=== PATIENT | male | born 1990 | race Caucasian/White ===

== ENCOUNTER 2021-09-28 17:47 | Emergency (ER) | payer OTHER ==
[2021-09-28 18:57] VITALS: BP 116/70; PULSE 97; RESP 20; TEMP 99.5
[2021-09-28] MEDS ORDERED: ACETAMINOPHEN TAB 500 MG TAB PO STA (19:59)
[2021-09-28] MEDS ORDERED: KETOROLAC 15 MG/ML 1 ML VIAL IM STA (19:59)
[2021-09-28] MEDS ORDERED: MAG HYDROX/AL HYDROX/SIMETH 30 ML, HYOSCYAMINE ELIXIR 10 ML, LIDOCAINE VISCOUS 2% 10 ML PO STA ×3 (19:59)
[2021-09-28] MEDS ORDERED: ONDANSETRON 4 MG ODT STARTER PACK 2 TAB BTL PO STA (19:59)
--- NOTE | 2021-09-28 20:17 | XR ---
EXAMINATION TYPE: XR chest 1V DATE OF EXAM: 09/28/2021 COMPARISON: NONE HISTORY: Difficulty breathing TECHNIQUE: Single view FINDINGS: Heart and mediastinum are normal. Lungs are clear. Diaphragm is normal. Bony thorax is inta ct. IMPRESSION: Normal chest.
--- NOTE | 2021-09-28 20:59 | ED ---
General Adult HPI - General Chief complaint: Upper Respiratory Infection Stated complaint: GENEVA,Fever,cough Poss COVID3 of 4 Time Seen by Provider: 09/28/21 19:15 Source: patient Mode of arrival: ambulatory Limitations: no limitations - History of Present Illness Initial comments: 31-year-old male patient presents to the emergency department today for althea luation of sore throat, cough, fevers for the last 5 days. States he feels that his throat was swollen and makes it difficult to swallow. States his pain is equal on both sides. Denies any trismus. Does report cough with yellow sputum production. States his had intermittent fevers. Reports intermittent episodes of vomiting. Denies diarrhea. Does have a history of GERD and is a smoker. Denies taking any medications for symptoms today. Does have family member sick with similar symptoms he is concerned he has COVID-19. - Related Data Previous Rx's Medication Instructions Recorded Ibuprofen [Motrin] 800 mg PO Q8HR PRN #30 tab 06/08/14 Phenazopyridine [Pyridium] 200 mg PO TID #6 tablet 08/29/15 Albuterol Sulfate [Proair Hfa] 1 - 2 puff INHALATION Q6HR PRN 09/28/21 #8.5 gm Dexamethasone 6 mg PO DAILY #9 tablet 09/28/21 Ondansetron [Zofran ODT] 4 mg PO Q8HR PRN #10 tab 09/28/21 guaiFENesin-DM 600/30MG [Mucinex 2 each PO Q12HR PRN #20 tab 09/28/21 Dm] Allergies Allergy/AdvReac Type Severity Reaction Status Date / Time No Known Allergies Allergy Verified 09/28/21 18:54 Review of Systems ROS Statement: Those systems with pertinent positive or pertinent negative responses have been documented in the HPI. ROS Other: All systems not noted in ROS Statement are negative. Past Medical History Past Medical History: GERD/Reflux Additional Past Medical History / Comment(s): Carpal Tunnel bilateral, Esophageal Ulcer History of Any Multi-Drug Resistant Organisms: None Reported Past Surgical History: No Surgical Hx Reported Past Psychological History: Anxiety, Bipolar, Depression Smoking Status: Current every day smoker Past Alcohol Use History: None Reported, Occasional Past Drug Use History: Marijuana General Exam Limitations: no limitations General appearance: alert, in no apparent distress, other (This is a well- developed, well-nourished adult male patient in no acute distress.) ENT exam: Present: mucous membranes moist. Absent: normal oropharynx (Pharyngeal erythema, no tonsillar hypertrophy or exudate. Tonsils are symmetric and uvula is midline.) Respiratory exam: Present: normal lung sounds bilaterally. Absent: respiratory distress, wheezes, rales, rhonchi, stridor Cardiovascular Exam: Present: regular rate, normal rhythm, normal heart sounds. Absent: systolic murmur, diastolic murmur, rubs, gallop, clicks GI/Abdominal exam: Present: soft, normal bowel sounds. Absent: distended, tenderness, guarding, rebound, rigid Neurological exam: Present: alert, oriented X3, CN II-XII intact Psychiatric exam: Present: normal affect, normal mood Skin exam: Present: warm, dry, intact, normal color. Absent: rash Course Vital Signs 09/28/21 18:55 Temperature 99.5 F Pulse Rate 97 Respiratory 20 Rate Blood Pressure 116/70 O2 Sat by Pulse 97 Oximetry Medical Decision Making - Medical Decision Making 31-year-old male patient presents to the emergency department today for evaluation of cough, congestion, sore throat, fevers. Physical examination did reveal some mild pharyngeal erythema. Vital signs are unremarkable. Chest x- ray negative. He did test positive for COVID-19. We did discuss monoclonal antibodies and he does meet criteria to receive the infusion, he refuses. We did discuss supportive care, he'll be sent with prescriptions for symptom management. He is instructed to follow-up with his primary care physician for recheck in 1-2 days. Return parameters were discussed in detail. He verbalizes understanding and agrees with this plan. Case discussed with my attending Dr. Elena. - Lab Data Lab Results 09/28/21 Range/Units 19:10 Coronavirus (PCR) Detected A (Not Detectd) - Radiology Data Radiology results: report reviewed, image reviewed 1 view x-ray of the chest is obtained. Report was reviewed in its entirety. Impression by Dr. Brown shows normal chest. Disposition Clinical Impression: COVID-19 Disposition: HOME SELF-CARE Condition: Good Instructions (If sedation given, give patient instructions): Coronavirus Disease 2019 (COVID-19) Additional Instructions: Take medications as directed. Increase fluids. Rest. Follow-up with her primary care physician for recheck in 1-2 days. Return for any new, worsening, or concerning symptoms. Prescriptions: Dexamethasone 6 mg PO DAILY #9 tablet guaiFENesin-DM 600/30MG [Mucinex Dm] 2 each PO Q12HR PRN #20 tab PRN Reason: Cough Albuterol Sulfate [Proair Hfa] 1 - 2 puff INHALATION Q6HR PRN #8.5 gm PRN Reason: Shortness Of Breath Ondansetron [Zofran ODT] 4 mg PO Q8HR PRN #10 tab PRN Reason: Nausea Is patient prescribed a controlled substance at d/c from ED?: No Referrals: None,Stated [Primary Care Provider] - 1-2 days Time of Disposition: 20:59
== END 2021-09-28 21:15 | disposition home or self-care (01) ==
LOC: EC 17:47
DX: U07.1 COVID-19 (principal); K21.9 Gastro-esophageal reflux disease without esophagitis; F41.9 Anxiety disorder, unspecified; F31.9 Bipolar disorder, unspecified; F17.200 Nicotine dependence, unspecified, uncomplicated; F12.90 Cannabis use, unspecified, uncomplicated; Z87.19 Personal history of other diseases of the digestive system
CPT/HCPCS: 99283 ×2; 96372 ×2; 87635; 71045; J1885; S0119

== ENCOUNTER 2023-05-20 09:39 | Inpatient (IN) | payer MEDICAID, OTHER ==
--- NOTE | 2023-05-20 10:56 | ED ---
General Adult HPI - General Chief complaint: Psychiatric Symptoms Stated complaint: mental health Time Seen by Provider: 05/20/23 10:41 Source: patient, family, RN notes reviewed Mode of arrival: ambulatory Limitations: no limitations - History of Present Illness Initial comments: Patient is a pleasant 32-year-old male presenting to the emergency department with concern with anxiety. Patient has been under increased stress. Patient has had increasing anxiety for the past 5 days. Patient is not sleeping. Patient is not eating well. Patient does not believe he is functioning well. Patient does have palpitations. Patient has nonspecific paresthesias as well. Patient denies history of chronic anxiety. Patient does admit to sometimes smoking marijuana. - Related Data Home Medications Medication Instructions Recorded Confirmed No Known Home Medications 05/20/23 05/20/23 Allergies Allergy/AdvReac Type Severity Reaction Status Date / Time No Known Allergies Allergy Verified 05/20/23 11:23 Review of Systems ROS Statement: Those systems with pertinent positive or pertinent negative responses have been documented in the HPI. ROS Other: All systems not noted in ROS Statement are negative. Constitutional: Denies: fever Eyes: Denies: eye pain ENT: Denies: ear pain Respiratory: Denies: cough Cardiovascular: Reports: as per HPI, palpitations Endocrine: Denies: fatigue Gastrointestinal: Denies: abdominal pain Genitourinary: Denies: dysuria Musculoskeletal: Denies: back pain Past Medical History Past Medical History: GERD/Reflux Additional Past Medical History / Comment(s): Carpal Tunnel bilateral, Esophageal Ulcer History of Any Multi-Drug Resistant Organisms: None Reported Past Surgical History: No Surgical Hx Reported Past Psychological History: Anxiety, Bipolar, Depression Smoking Status: Current every day smoker Past Alcohol Use History: None Reported, Occasional Past Drug Use History: Marijuana General Exam Limitations: no limitations General appearance: alert, in no apparent distress Head exam: Present: normocephalic Eye exam: Present: normal appearance Respiratory exam: Present: normal lung sounds bilaterally Cardiovascular Exam: Present: regular rate, normal rhythm GI/Abdominal exam: Present: soft. Absent: tenderness Extremities exam: Present: normal inspection Neurological exam: Present: alert, CN II-XII intact. Absent: motor sensory deficit Psychiatric exam: Present: anxious Skin exam: Present: normal color Course Vital Signs 05/20/23 10:03 Temperature 98 F Pulse Rate 82 Respiratory 16 Rate Blood Pressure 125/82 O2 Sat by Pulse 97 Oximetry EKG Findings - EKG Results: EKG: interpreted by ERMD, sinus rhythm (With sinus arrhythmia), normal axis, normal QRS, normal ST/T Medical Decision Making - Medical Decision Making Was pt. sent in by a medical professional or institution (DAMIEN Emery, CREDIT RELATIONSHIP MANAGER, urgent care, hospital, or snf...) When possible be specific @ -No Did you speak to anyone other than the patient for history (EMS, parent, family, police, friend...)? What history was obtained from this source @ -Family is present and helps provide history including patient's increased anxiety Did you review nursing and triage notes (agree or disagree)? Why? @ -I reviewed and agree with nursing and triage notes Were old charts reviewed (outside hosp., previous admission, EMS record, old EKG, old radiological studies, urgent care reports/EKG's, snf records)? Report findings @ -No old charts were reviewed Differential Diagnosis (chest pain, altered mental status, abdominal pain women, abdominal pain men, vaginal bleeding, weakness, fever, dyspnea, syncope, headache, dizziness, GI bleed, back pain, seizure, CVA, palpatations, mental health)? @ -not applicable EKG interpreted by me (3pts min.). @ -As above X-rays interpreted by me (1pt min.). @ -None done CT interpreted by me (1pt min.). @ -None done U/S interpreted by me (1pt. min.). @ -None done What testing was considered but not performed or refused? (CT, X-rays, U/S, labs)? Why? @ -None What meds were considered but not given or refused? Why? @ -None Did you discuss the management of the patient with other professionals (professionals i.e. DAMIEN Emery, CREDIT RELATIONSHIP MANAGER, lab, RT, psych nurse, social work assistant, regional facilities manager, teacher, chief school finance officer, caseworker protective services)? Give summary @ -Case was discussed with psychiatric nurse who plans with admission of patient. Patient did sign himself in. Was smoking cessation discussed for >3mins.? @ -No Was critical care preformed (if so, how long)? @ -No Were there social determinants of health that impacted care today? How? (Homelessness, low income, unemployed, alcoholism, drug addiction, transportation, low edu. Level, literacy, decrease access to med. care, long term, rehab)? @ -No Was there de-escalation of care discussed even if they declined (Discuss DNR or withdrawal of care, Hospice)? DNR status @ -No What co-morbidities impacted this encounter? (DM, HTN, Smoking, COPD, CAD, Cancer, CVA, ARF, Chemo, Hep., AIDS, mental health diagnosis, sleep apnea, morbid obesity)? @ -None Was patient admitted / discharged? Hospital course, mention meds given and route, prescriptions, significant lab abnormalities, going to OR and other pertinent info. @ -Patient will be admitted for psychiatric care Undiagnosed new problem with uncertain prognosis? @ -No Drug Therapy requiring intensive monitoring for toxicity (Heparin, Nitro, Insulin, Cardizem)? @ -No Were any procedures done? @ -No Diagnosis/symptom? @ -Anxiety Acute, or Chronic, or Acute on Chronic? @ -Acute Uncomplicated (without systemic symptoms) or Complicated (systemic symptoms)? @ -default Side effects of treatment? @ -No Exacerbation, Progression, or Severe Exacerbation? @ -No Poses a threat to life or bodily function? How? (Chest pain, [place], [place], pneumonia, PE, COPD, DKA, ARF, appy, cholecystitis, CVA, Diverticulitis, Homicidal, Suicidal, threat to staff... and all critical care pts) @ -No Disposition Clinical Impression: Acute anxiety Disposition: TRANSFER TO PSYCH HOSP/UNIT Is patient prescribed a controlled substance at d/c from ED?: No Referrals: None,Stated [Primary Care Provider] - 1-2 days Time of Disposition: 12:00
[2023-05-20] MEDS ORDERED: LORazepam 1 MG TAB PO STA (11:56)
[2023-05-20 13:18] LABS: Amphetamine Screen,Urine Not Detected (NotDetected); Benzodiazepines Screen,Urine Not Detected (NotDetected); Cocaine Screen,Urine Not Detected (NotDetected); Opiate Screen,Urine Not Detected (NotDetected); Phencyclidine Screen,Urine Not Detected (NotDetected); Tricyclic Antidepressant,Urine Not Detected (NotDetected); Urn Cannabinoid Scrn Detected (NotDetected)
[2023-05-20 13:19] LABS: Barbiturate Screen,Urine Not Detected (NotDetected); Methadone Screen, Urine Not Detected (NotDetected); Oxycodone Screen, Urine Not Detected (NotDetected)
[2023-05-20] MEDS ORDERED: MAG HYDROX/AL HYDROX/SIMETH 30 ML CUP PO PRN (13:23)
[2023-05-20] MEDS ORDERED: MAGNESIUM HYDROXIDE 2,400 MG/30 ML CUP PO PRN (13:23)
[2023-05-20] MEDS ORDERED: ACETAMINOPHEN TAB 325 MG TAB PO PRN (13:23)
[2023-05-20] MEDS ORDERED: traZODone HCL 100 MG TAB PO PRN (13:26)
[2023-05-20] MEDS ORDERED: hydrOXYzine HCL 50 MG/ML 1 ML VIAL IM PRN (13:26)
[2023-05-20] MEDS ORDERED: haloperidoL 5 MG TAB PO PRN (13:26)
[2023-05-20] MEDS ORDERED: HALOPERIDOL LACTATE 5 MG/ML 1 ML VIAL IM PRN (13:26)
[2023-05-20 15:01] LABS: Appearance,Urine Clear (Clear); Bilirubin,Urine Negative (Negative); Blood,Urine Negative (Negative); Color,Urine Colorless; Glucose,Urine (UA) Negative (Negative); Ketones,Urine Negative (Negative); Leukocyte Esterase,Urine Negative (Negative); Nitrite,Urine Negative (Negative); Protein,Urine Negative (Negative); Specific Gravity,Urine 1.002 (1.001-1.035); Urobilinogen,Urine <2.0 mg/dL (<2.0)
[2023-05-20] MEDS: hydrOXYzine pamoate 25 MG CAP PO PRN (16:18)
[2023-05-20] MEDS: SENNOSIDES-DOCUSATE SODIUM 1 EACH TAB PO SCH (16:18)
--- NOTE | 2023-05-20 17:01 | P.CONS ---
History of Present Illness - Reason for Consult Consult date: 05/20/23 - History of Present Illness Patient is a 32-year-old male with no significant past medical history presenting to the ED for mental health concerns. He's been admitted to the mental health unit for further management of his symptoms. [facility] has been consulted for medical management of this patient. Patient reports a history of anxiety and panic attacks a cause pressure-like sensation in his chest. He reports good exercise tolerance. He denies any exertional chest pain. Patient reports being evaluated with EKG and blood work at an outside hospital which was negative for ischemic cardiac changes. He has no other complaints today. General: non toxic, no distress, appears at stated age Derm: warm, dry Head: atraumatic, normocephalic, symmetric Eyes: EOMI, no lid lag, anicteric sclera Cardiovascular: S1S2 reg, no murmur Lungs: CTA bilateral, no rhonchi, no rales , no accessory muscle use Ext: no gross muscle atrophy, no edema, no contractures Neuro: CN II-XI grossly intact, no focal neuro deficits Psych: Alert, oriented, appropriate affect Marijuana abuse Chest discomfort likely related to anxiety and panic attack Based on my assessment of this patient, this patient meets a moderate complexity level of care. Patient has a chronic diagnosis of anxiety and panic attack. He reports chest pressure when he experiences these panic attacks. He reports being evaluated with EKG and blood work in an outside hospital that was negative for ischemic changes. He denies any exertional chest pain or issues with exercise tolerance. His symtoms is unlikely to be cardiac in nature. Patient is encouraged to quit marijuana use and it can be contributing to his anxiety and panic attacks. I have reviewed the following investment consultant notes: I have reviewed the results of the following tests: Urinalysis negative. UDS positive for marijuana. COVID-19 negative. I have ordered the following tests: Agree with CBC, CMP, hemoglobin A1c and TSH ordered by psychiatry. I have discussed the care of this patient with the following independent historian: I have independently interpreted the following test below: I have discussed the management of this patient with the following physician: Past Medical History Past Medical History: GERD/Reflux Additional Past Medical History / Comment(s): Carpal Tunnel bilateral, Esophageal Ulcer History of Any Multi-Drug Resistant Organisms: None Reported Past Surgical History: No Surgical Hx Reported Past Psychological History: Anxiety, Bipolar, Depression Smoking Status: Current every day smoker Past Alcohol Use History: None Reported, Occasional Past Drug Use History: Marijuana Medications and Allergies Home Medications Medication Instructions Recorded Confirmed Type No Known Home Medications 05/20/23 05/20/23 History Allergies Allergy/AdvReac Type Severity Reaction Status Date / Time No Known Allergies Allergy Verified 05/20/23 11:23 Physical Exam Vitals: Vital Signs Temp Pulse Resp BP Pulse Ox 05/20/23 10:03 98 F 82 16 125/82 97 Intake and Output 05/20/23 05/20/23 05/20/23 06:59 14:59 22:59 Other: Weight 74.843 kg Results Labs: Abnormal Lab Results - Last 24 Hours (Table) 05/20/23 Range/Units 11:32 U Marijuana (THC) Screen Detected H (NotDetected)
[2023-05-21] MEDS: hydrOXYzine pamoate 25 MG CAP PO PRN (08:02)
[2023-05-21] MEDS: SENNOSIDES-DOCUSATE SODIUM 1 EACH TAB PO SCH (08:02)
[2023-05-21 11:44] LABS: Basophils % (A) 0 %; Eosinophils # (A) 0.1 k/uL (0-0.7); Eosinophils % (A) 1 %; HCT 43.2 % (39.0-53.0); HGB 14.8 gm/dL (13.0-17.5); Lymphocytes # (A) 1.1 k/uL (1.0-4.8); Lymphocytes % (A) 25 %; MCH 33.1 pg (25.0-35.0); MCHC 34.4 g/dL (31.0-37.0); MCV 96.1 fL (80.0-100.0); Mean Platelet Volume 8.1; Monocytes # (A) 0.2 k/uL (0-1.0); Monocytes % (A) 5 %; Neutrophils # (A) 2.9 k/uL (1.3-7.7); Neutrophils % (A) 66 %; Platelet Count 165 k/uL (150-450); RBC 4.49 m/uL (4.30-5.90); RDW 12.1 % (11.5-15.5); WBC 4.4 k/uL (3.8-10.6)
[2023-05-21] MEDS ORDERED: clonazePAM 1 MG TAB PO STA (11:46)
[2023-05-21 11:47] LABS: ALT 23 U/L (4-49); AST 28 U/L (17-59); African American GFR (CKD) >90 (>60 ml/min/1.73 sqM); Albumin 3.7 g/dL (3.5-5.0); Alkaline Phosphatase 50 U/L (38-126); Anion Gap 6 mmol/L; Blood Urea Nitrogen 13 mg/dL (9-20); Calcium 8.8 mg/dL (8.4-10.2); Carbon Dioxide 27 mmol/L (22-30); Chloride 104 mmol/L (98-107); Glucose 88 mg/dL (74-99); Non-African American GFR(CKD) >90 (>60 ml/min/1.73 sqM); Potassium 4.1 mmol/L (3.5-5.1); Sodium 137 mmol/L (137-145); Total Protein 6.1 g/dL (6.3-8.2)
[2023-05-21] MEDS ORDERED: FLUoxetine HCL 10 MG CAP PO STA (11:48)
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
[2023-05-21] MEDS: clonazePAM 1 MG TAB PO SCH ×2 (16:28→21:45)
[2023-05-21] MEDS: traZODone HCL 100 MG TAB PO SCH (21:45)
[2023-05-22 07:10] VITALS: TEMP 98.3
[2023-05-22] MEDS: SENNOSIDES-DOCUSATE SODIUM 1 EACH TAB PO SCH (08:05)
[2023-05-22] MEDS: FLUoxetine HCL 20 MG CAP PO SCH (08:05)
[2023-05-22] MEDS: clonazePAM 1 MG TAB PO SCH ×2 (08:05→20:43)
--- NOTE | 2023-05-22 11:58 | P.PN ---
Progress Note - Text Progress Note Date: 05/22/23 Interval History: Patient was seen resting in bed and was directable and agreeable to speak with instructional writer in his room. Reports that he feels tired as he feels like he is catching up with all of his lost sleep. He does however report that his anxiety has significantly improved. He reports that he feels like he is back to normal. He is currently denying any suicidal or homicidal ideation, intention, and/or plan. He is not reporting any auditory or visual hallucinations. He denies any paranoia or other delusions. He reports no issues regarding his sleep or his appetite. He denies any medical issues or concerns. He is agreeable with titration of his Prozac and tapering of his Klonopin. Mental Status Exam: General Appearance: Patient appears to be stated age is alert, directable, and cooperative. Behavior: Patient is calmly lying down in bed without any agitated behavior. Speech: Patient's speech is fluent and nonpressured. Mood/Affect: Mood is improving mildly, affect is congruent and constricted. Suicidality/Homicidality: Patient reports no suicidal or homicidal ideation, intention, and/or plan. Perceptions: Patient denies any visual hallucinations and denies any auditory hallucinations Though content/process: There is no evidence of any delusional thought content and thought process is linear and goal-directed. Memory and concentration: AOX3, grossly intact for the purposes of this session Judgment and insight: Improving mildly Vital Signs Temp 98.3 F 05/22/23 07:09 Pulse 72 05/22/23 08:07 Resp 16 05/22/23 07:09 BP 91/57 05/22/23 08:07 Pulse Ox 99 05/22/23 07:09 FiO2 Laboratory Results - Last 24 Hours 05/21/23 05/21/23 10:42 10:[address] Glu mg/dL 94 Hemoglobin A1c 4.9 TSH 1.310 Assessment Panic disorder, without or phobia Cannabis use disorder Alcohol use disorder, in remission Plan: -Patient continues to meet criteria for inpatient psychiatric admission for symptom stabilization and safety. Patient has signed adult voluntary form and medication consent and was placed in patient's chart. -Medications: Taper Klonopin over the weekend Increase Prozac to 40 mg by mouth daily for panic disorder. Titrate to 60 mg over the weekend. -When necessary Vistaril and Haldol for agitation/aggression. -SW on board for discharge planning. Encouraged the patient to participate in milieu.
[2023-05-22] MEDS: clonazePAM 0.5 MG TAB PO PRN (14:07)
[2023-05-22 15:20] VITALS: BMI 22.2
[2023-05-22] MEDS: hydrOXYzine pamoate 25 MG CAP PO PRN (17:56)
[2023-05-22] MEDS: traZODone HCL 100 MG TAB PO SCH (20:43)
[2023-05-23] MEDS: FLUoxetine HCL 20 MG CAP PO SCH (09:15)
[2023-05-23] MEDS: clonazePAM 1 MG TAB PO SCH ×2 (09:16→21:09)
[2023-05-23] MEDS: SENNOSIDES-DOCUSATE SODIUM 1 EACH TAB PO SCH (09:16)
--- NOTE | 2023-05-23 11:03 | P.PN ---
Progress Note - Text Progress Note Date: 05/23/23 Interval history: Patient was seen laying in bed today and was directable and agreeable to speak with adjusto writer operator. Patient claims that he is feeling tired this morning and states that he was trying to get over a "giant panic attack all last week". He states that he is mildly improving in terms of his mood and anxiety. He is denying any depression at this time. He claims that he had no complaints over the night and states that he slept fairly, has a fair appetite, has been going to minimal gr oups. In the keeping to himself or in his room on the unit. At this time patient denies any suicidal or homicidal ideations intent or plan. Denies any Auditory or visual hallucinations. Patient denies any side effects from the medications and has been compliant with meds. Mental status exam: General Appearance: Patient appears to be thin, stated age is directable, and cooperative. Somewhat lethargic. Behavior: No agitated behavior. Patient is calm and directable Speech: Patient's speech is fluent and nonpressured. Mood/Affect: Mood is improving mildly, affect is congruent and constricted. Suicidality/Homicidality: Patient denies having any suicidal or homicidal ideation intent or plan. Perceptions: Patient denies any auditory or visual hallucinations. Though content/process: There is no evidence of any delusional thought content and thought process is linear and goal-directed. [place] Memory and concentration: AOX3, grossly intact for the purposes of this session Judgment and insight: improving mildly Assessment/Plan: Continue with current diagnosis. Patient continues to meet criteria for inpatient psychiatric admission for symptom stabilization and safety.Patient will be maintained on current psychotropic medication regimen. plan will be to decrease klonopin over the weekend. will decrease down to 0.5 mg bid starting tomorrow. Monitor for medication compliance and for any psychotropic medication side effects. Will continue to monitor ongoing response to treatment. Encouraged participation in milieu.
[2023-05-23] MEDS: clonazePAM 0.5 MG TAB PO PRN (13:49)
[2023-05-23] MEDS: hydrOXYzine pamoate 25 MG CAP PO PRN (16:01)
[2023-05-23] MEDS: traZODone HCL 100 MG TAB PO SCH (21:09)
[2023-05-24] MEDS: FLUoxetine HCL 20 MG CAP PO SCH (07:57)
[2023-05-24] MEDS: SENNOSIDES-DOCUSATE SODIUM 1 EACH TAB PO SCH (07:57)
[2023-05-24] MEDS: clonazePAM 1 MG TAB PO SCH (07:57)
[2023-05-24] MEDS ORDERED: clonazePAM 0.5 MG TAB PO PRN (10:00)
[2023-05-24] MEDS: clonazePAM 0.5 MG TAB PO PRN ×2 (11:08→16:33)
--- NOTE | 2023-05-24 11:42 | P.PN ---
Progress Note - Text Progress Note Date: 05/24/23 Interval history: Patient was seen wandering in the hallways near the nurse's desk and medication window and was directable and agreeable to speak with va underwriter. Patient claims that he is improved since yesterday. States that his anxiety is getting better. He claims that he does not remember speaking to va underwriter yesterday. Claims that he has been trying to go to some groups and was fairly to superficial. States that he is up eating meals, sleeping better last night. Has any depression tod ay. Needs to speak about his overall panic attacks that he used to have and how they are under better control. has a fair appetite. At this time patient denies any suicidal or homicidal ideations intent or plan. Denies any Auditory or visual hallucinations. Patient denies any side effects from the medications and has been compliant with meds. Mental status exam: General Appearance: Patient appears to be thin, stated age is directable, and cooperative. More awake today. Behavior: No agitated behavior. Patient is calm and directable, more cooperative Speech: Patient's speech is fluent and nonpressured. Mood/Affect: Mood is improving mildly, affect is congruent and constricted. Suicidality/Homicidality: Patient denies having any suicidal or homicidal ideation intent or plan. Perceptions: Patient denies any auditory or visual hallucinations. Though content/process: There is no evidence of any delusional thought content and thought process is linear and goal-directed. [place] Memory and concentration: AOX3, grossly intact for the purposes of this session Judgment and insight: improving mildly Assessment/Plan: Continue with current diagnosis. Patient continues to meet nurys m[facility]il for inpatient psychiatric admission for symptom stabilization and safety.Patient will be maintained on current psychotropic medication regimen. Monitor for medication compliance and for any psychotropic medication side effects. Will continue to monitor ongoing response to treatment. Encouraged participation in milieu.
[2023-05-24] MEDS: hydrOXYzine pamoate 25 MG CAP PO PRN (13:37)
[2023-05-24] MEDS: traZODone HCL 100 MG TAB PO SCH (21:06)
[2023-05-24] MEDS: clonazePAM 0.5 MG TAB PO SCH (21:06)
[2023-05-25] MEDS: clonazePAM 0.5 MG TAB PO SCH (08:50)
[2023-05-25] MEDS: SENNOSIDES-DOCUSATE SODIUM 1 EACH TAB PO SCH (08:50)
[2023-05-25] MEDS: FLUoxetine HCL 20 MG CAP PO SCH (08:50)
[2023-05-25 08:52] VITALS: BP 130/69; PULSE 78; RESP 20
--- NOTE | 2023-05-25 11:35 | P.DS ---
Providers Date of admission: 05/20/23 13:21 Expected date of discharge: 05/25/23 Attending physician: Jeramy Lockett MD Consults: 05/20/23 13:23 Consult Physician Routine Consulting Provider: Betito Physician Consult Reason/Comments: H&P Do you want consulting provider notified?: Yes Primary care physician: Stated None - Discharge Diagnosis(es) (1) Panic disorder without agoraphobia with severe panic attacks Current Visit: Yes Status: Acute Priority: High (2) Cannabis use disorder Current Visit: Yes Status: Chronic Priority: Medium (3) Alcohol use disorder in remission Current Visit: Yes Status: Resolved Priority: Low Hospital Course: Admission HPI: Patient is an engaged, unemployed, 32-year-old male with significant history of depression and anxiety who presents to the hospital on 05/20/2023 for severe anxiety HPI: Patient presented to the hospital on 05/20/2023 for severe anxiety. He did initially presented with chest tightness and chest pressure and was evaluated medically and acute cardiac pathology was ruled out. Present in the emergency department with the patient was his mother who provided him with significant social support. The patient was presenting as overtly anxious and borderline psychotic and delusional with concerns for physical symptoms including numbness," abdominal movements," and chest pain. The patient was agreeable to signing himself voluntarily on to the psychiatric unit. Upon evaluation on the psychiatric unit, the patient reports that he received some relief from his panic when he was administered medication yesterday which included Ativan and trazodone. The patient reports that he has been feeling increasingly anxious for the past one week. He does report significant symptoms of panic disorder including palpitations, sweating, trembling, shortness of breath, chest paindiscomfort, nausea, paresthesias, derealization, fear of losing control, and fear of dying. He is consistently worried about these and reports that he has been unable to think about anything else. The patient states that he has only been able to sleep for 2 hours per night for the last few days. He expresses that he is very frustrated with this feeling. He is however denying any suicidal or homicidal ideation, intention, and/or plan. He reports no prior attempts at suicide. The patient states that he is dealing with significant stress in relation to his fiance, children, and finances however he reports that these are stressors that "anybody and everybody has." He is not endorsing any auditory or visualizations. He is denying any paranoia. He does report numerous somatic symptoms in relation to his panic. The patient does report significant substance abuse. He reports that he has been using heavy amounts of marijuana. He reports that he has been using a gram of marijuana per day on top of wax. He denies any alcohol use. He reports no illicit drug use. He denies any tobacco use. He does report a history of alcohol use with approximately a pint of liquor per day however states that he has been sober for one year. Patient states that he has been previously diagnosed with depression/anxiety. He recalls being previously prescribed Prozac and other medications but cannot r ecall their names. He reports that his next dose of Prozac 30 mg daily. Patient denies any previous psychiatric hospitalizations. Patient denies any psychiatric outpatient follow-up. Patient denies any history of suicide attempts in the past. Hospital course: Upon admission to the unit patient was initially presenting as overtly anxious and in a panic. Patient was however directable and agreeable to commence treatment. Patient got along well with other patients on the unit and followed unit protocol. Patient was compliant with the medications and denied any side effects throughout hospital course. Patient was started on Klonopin and Prozac for management of panic disorder. Patient spoke of his stressors and engaged in therapy both group and individual. Patient was also seen by medical team for history and physical exam. His Klonopin was gradually tapered during the hospitalization as his Prozac was titrated. Throughout the course of the hospitalization patient gradually improved with regards to his panic and anxiety symptoms. He also had significant improvement in his mood, sleep, and appetite. On the day of discharge, the patient is not reporting any suicidal or homicidal ideation, intention, and/or plan. He is not reporting any auditory or visual hallucinations. He is denying any paranoia or other delusions. He is not reporting any access to firearms other weapons. He reports a strong side to live for himself and for his family. He does have significant history of substance abuse however was counseled at great length on abstaining from all substances including tobacco, marijuana, alcohol, and all illicit drugs. He was encouraged to be adherent with his medications and outpatient appointments. Prior to discharge, family meeting will be arranged by bilingual social worker to answer questions and ensure safety. He reported no medical issues or concerns on the day of discharge and denied any chest pain, Guy breath, palpitations, nausea, vomiting, akathisia, or tardive dyskinesia. Mental status exam: General Appearance: Patient appears to be stated age is alert, pleasant, and cooperative. Patient is in no acute distress and has fair hygiene and grooming Behavior: Patient is calmly seated without any agitated behavior. Speech: Patient's speech is fluent and nonpressured. Mood/Affect: Patient reports their mood is "much better", affect is congruent and euthymic to bright. Suicidality/Homicidality: Patient denies having any suicidal or homicidal ideation intent or plan. Perceptions: Patient denies any auditory or visual hallucinations. Though content/process: There is no evidence of any delusional thought content and thought process is linear and goal-directed. He is future and goal oriented. Memory and concentration: AOX3, grossly intact for the purposes of this session. Can spell "WORLD" backwards correctly. Judgment and insight: Improved Impression: Panic disorder, without agoraphobia Cannabis use disorder Alcohol use disorder, in remission Plan: -Continue with discharge today as patient has improved and stabilized psychiatrically and is not currently an imminent threat to himself and/or others. Patient has strong protective factors including a supportive family, duty to his children, and future orientation. -Continue medications: Prozac 60 mg daily for depression/anxiety/panic disorder Klonopin 0.5 mg by mouth twice a day when necessary for panic attacks Trazodone 100 mg daily at bedtime when necessary for insomnia -Patient was counseled on the need for medication compliance and appropriate follow-up at mental health and also primary care for medical issues. Patient verbalized understanding and agreed. -Social work to arrange for and conduct family meeting to ensure safety upon discharge and answer any questions/concerns. Social work also to arrange for patients follow up appointments with [facility] for [facility] care along with follow up with primary care provider. -Patient counseled on abstaining from recreational drugs and marijuana and alcohol. Was informed/educated on the adverse effects on their physical and mental health. Patient verbally agreed and understood. -Patient was instructed to return to the hospital or seek immediate medical care if their psychiatric or medical symptoms do worsen or reoccur. -Psychoeducation and supportive therapy provided to patient. Risks and benefits of pharmacological treatment versus the risks and benefits of nontreatment weighed and discussed. Informed consent discussion held. Common side effects of psychotropics discussed such as, but not limited to headache, GI disturbance, sexual dysfunction, movement disorders, sedation, and orthostatic hypotension. Life threatening and blackbox warnings of prescribed medications also discussed. Potential risks of operating a vehicle or heavy machinery discussed with patient at length. Advised on importance of compliance and a reliable and responsible manner. Patient advised to review FDA consumer labeling of all medications prior to taking. Patient verbalized understanding of potential risks, and agrees with current treatment plan. Patient advised to medically co ntact physician/emergency personnel if any acute changes in condition occur. Vital Signs Temp 98.3 F 05/22/23 07:09 Pulse 78 05/25/23 08:52 Resp 20 05/25/23 08:52 BP 130/69 05/25/23 08:52 Pulse Ox 99 05/22/23 07:09 FiO2 Intake & Output 05/24/23 05/25/23 05/25/23 18:59 06:59 18:59 Weight 76.3 kg Laboratory Results WBC 4.4 k/uL (3.8-10.6) 05/21/23 10:42 RBC 4.49 m/uL (4.30-5.90) 05/21/23 10:42 Hgb 14.8 gm/dL (13.0-17.5) 05/21/23 10:42 Hct 43.2 % (39.0-53.0) 05/21/23 10:42 MCV 96.1 fL (80.0-100.0) 05/21/23 10:42 MCH 33.1 pg (25.0-35.0) 05/21/23 10:42 MCHC 34.4 g/dL (31.0-37.0) 05/21/23 10:42 RDW 12.1 % (11.5-15.5) 05/21/23 10:42 Plt Count 165 k/uL (150-450) 05/21/23 10:42 MPV 8.1 05/21/23 10:42 Neutrophils % 66 % 05/21/23 10:42 Lymphocytes % 25 % 05/21/23 10:42 Monocytes % 5 % 05/21/23 10:42 Eosinophils % 1 % 05/21/23 10:42 Basophils % 0 % 05/21/23 10:42 Neutrophils # 2.9 k/uL (1.3-7.7) 05/21/23 10:42 Lymphocytes # 1.1 k/uL (1.0-4.8) 05/21/23 10:42 Monocytes # 0.2 k/uL (0-1.0) 05/21/23 10:42 Eosinophils # 0.1 k/uL (0-0.7) 05/21/23 10:42 Basophils # 0.0 k/uL (0-0.2) 05/21/23 10:42 Sodium 137 mmol/L (137-145) 05/21/23 10:42 Potassium 4.1 mmol/L (3.5-5.1) 05/21/23 10:42 Chloride 104 mmol/L (98-107) 05/21/23 10:42 Carbon Dioxide 27 mmol/L (22-30) 05/21/23 10:42 Anion Gap 6 mmol/L 05/21/23 10:42 BUN 13 mg/dL (9-20) 05/21/23 10:42 Creatinine 0.84 mg/dL (0.66-1.25) 05/21/23 10:42 Est GFR (CKD-EPI)AfAm >90 (>60 ml/min/1.73 sqM) 05/21/23 10:42 Est GFR (CKD-EPI)NonAf >90 (>60 ml/min/1.73 sqM) 05/21/23 10:42 Glucose 88 mg/dL (74-99) 05/21/23 10:[address] Glu mg/dL 94 mg/dL 05/21/23 10:42 Hemoglobin A1c 4.9 % (<=6.0) 05/21/23 10:42 Calcium 8.8 mg/dL (8.4-10.2) 05/21/23 10:42 Total Bilirubin 1.0 mg/dL (0.2-1.3) 05/21/23 10:42 AST 28 U/L (17-59) 05/21/23 10:42 ALT 23 U/L (4-49) 05/21/23 10:42 Alkaline Phosphatase 50 U/L (38-126) 05/21/23 10:42 Total Protein 6.1 g/dL (6.3-8.2) L 05/21/23 10:42 Albumin 3.7 g/dL (3.5-5.0) 05/21/23 10:42 TSH 1.310 mIU/L (0.465-4.680) 05/21/23 10:42 Urine Color Colorless 05/20/23 11:32 Urine Appearance Clear (Clear) 05/20/23 11:32 Urine pH 7.0 (5.0-8.0) 05/20/23 11:32 Ur Specific [place] 1.002 (1.001-1.035) 05/20/23 11:32 Urine Protein Negative (Negative) 05/20/23 11:32 Urine Glucose (UA) Negative (Negative) 05/20/23 11:32 Urine Ketones Negative (Negative) 05/20/23 11:32 Urine Blood Negative (Negative) 05/20/23 11:32 Urine Nitrite Negative (Negative) 05/20/23 11:32 Urine Bilirubin Negative (Negative) 05/20/23 11:32 Urine Urobilinogen <2.0 mg/dL (<2.0) 05/20/23 11:32 Ur Leukocyte Esterase Negative (Negative) 05/20/23 11:32 Urine Opiates Screen Not Detected (NotDetected) 05/20/23 11:32 Ur Oxycodone Screen Not Detected (NotDetected) 05/20/23 11:32 Urine Methadone Screen Not Detected (NotDetected) 05/20/23 11:32 Ur Propoxyphene Screen Not Detected (NotDetected) 05/20/23 11:32 Ur Barbiturates Screen Not Detected (NotDetected) 05/20/23 11:32 U Tricyclic Antidepress Not Detected (NotDetected) 05/20/23 11:32 Ur Phencyclidine Scrn Not Detected (NotDetected) 05/20/23 11:32 Ur Amphetamines Screen Not Detected (NotDetected) 05/20/23 11:32 U Methamphetamines Scrn Not Detected (NotDetected) 05/20/23 11:32 U Benzodiazepines Scrn Not Detected (NotDetected) 05/20/23 11:32 Urine Cocaine Screen Not Detected (NotDetected) 05/20/23 11:32 U Marijuana (THC) Screen Detected (NotDetected) H 05/20/23 11:32 Coronavirus (PCR) Not Detected (Not Detectd) 05/20/23 12:51 Allergies Allergy/AdvReac Type Severity Reaction Status Date / Time No Known Allergies Allergy Verified 05/20/23 11:23 Patient Condition at Discharge: Stable Plan - Discharge Summary New Discharge Prescriptions: New clonazePAM [KlonoPIN] 0.5 mg PO BID PRN 15 Days #30 tab PRN Reason: Panic Attack FLUoxetine HCL [PROzac] 60 mg PO DAILY 30 Days #90 cap traZODone HCL [Desyrel] 100 mg PO HS PRN 30 Days #30 tab PRN Reason: Insomnia Discharge Medication List FLUoxetine HCL [PROzac] 60 mg PO DAILY 30 Days #90 cap 05/25/23 [Rx] clonazePAM [KlonoPIN] 0.5 mg PO BID PRN 15 Days #30 tab 05/25/23 [Rx] traZODone HCL [Desyrel] 100 mg PO HS PRN 30 Days #30 tab 05/25/23 [Rx] Follow up Appointment(s)/Referral(s): [facility] [[facility]STA[facility]] - 1 Week Patient Instructions/Handouts: Anxiety (ED), Panic Attack (ED) Activity/Diet/Wound Care/Special Instructions: Avoid the use of street drugs and alcohol. Take all medications as prescribed. When you are in need of refills on your medications, please contact your medical provider and/or outpatient psychiatrist to have this done. Please go to scheduled outpatient appointments for aftercare treatment. If symptoms return or become worse, call the crisis line at and/or go to the nearest emergency room for evaluation. Discharge Disposition: HOME SELF-CARE
[2023-05-25] MEDS: hydrOXYzine pamoate 25 MG CAP PO PRN (11:54)
== END 2023-05-25 12:55 | disposition home or self-care (01) | DRG 756 ==
LOC: EC 09:39 → 3MHU 13:21
PROVIDERS: ADMIT Psychiatry & Neurology Psychiatry; ATTEND Psychiatry & Neurology Psychiatry
DX: F41.0 Panic disorder [episodic paroxysmal anxiety] (principal); F12.10 Cannabis abuse, uncomplicated; F17.200 Nicotine dependence, unspecified, uncomplicated; F31.9 Bipolar disorder, unspecified; G47.00 Insomnia, unspecified; Z20.822 Contact with and (suspected) exposure to COVID-19; F10.91 Alcohol use, unspecified, in remission; K21.9 Gastro-esophageal reflux disease without esophagitis; Z62.810 Personal history of physical and sexual abuse in childhood; Z56.0 Unemployment, unspecified; Z79.899 Other long term (current) drug therapy; Z87.19 Personal history of other diseases of the digestive system; Z91.410 Personal history of adult physical and sexual abuse
CPT/HCPCS: 80053; 80306; 81003; 82075; 83036; 84443; 85025; 87635; 93005; 99285

== ENCOUNTER 2023-07-27 11:54 | Emergency (ER) | payer OTHER ==
[2023-07-27 12:07] VITALS: TEMP 97.4
[2023-07-27] MEDS ORDERED: MAG HYDROX/AL HYDROX/SIMETH 30 ML, HYOSCYAMINE ELIXIR 10 ML, LIDOCAINE 2% GLYDO JELLY 1... PO STA ×3 (12:19)
[2023-07-27] MEDS ORDERED: FAMOTIDINE 20 MG/2 ML VIAL IV STA (12:19)
--- NOTE | 2023-07-27 12:22 | ED ---
Abdominal Pain HPI - General Chief Complaint: Abdominal Pain Stated Complaint: Constant Gas, history of Gerd Time Seen by Provider: 07/27/23 12:11 Source: patient, RN notes reviewed Mode of arrival: ambulatory - History of Present Illness Initial Comments: This is a 32-year-old male who presents to the emergency department for left upper quadrant and left-sided chest pain. Symptoms started a week ago. Reports a history of GERD and states that he feels like he has constant gas buildup in this area. He is unable to sleep due to the pain. He is concerned that the pain started to go up to the left side of his chest and wants to make sure that this is not cardiac related. Denies any nausea or vomiting. He is not currently taking anything for the GERD. Also denies any shortness of breath. Denies any history of similar symptoms in the past. Denies any fevers, chills, sore throat, cough, dyspnea, palpitations, nausea, vomiting, diarrhea, back pain, or headaches. MD Complaint: abdominal pain Onset/Timin -: week(s) Location: [facility] - Related Data Previous Rx's Medication Instructions Recorded FLUoxetine HCL [PROzac] 60 mg PO DAILY 30 Days #90 cap 05/25/23 clonazePAM [KlonoPIN] 0.5 mg PO BID PRN 15 Days #30 tab 05/25/23 traZODone HCL [Desyrel] 100 mg PO HS PRN 30 Days #30 tab 05/25/23 Famotidine 20 mg PO DAILY 14 Days #14 tablet 07/27/23 Hyoscyamine Sulfate [Levsin] 0.125 mg PO Q4H PRN #30 tab 07/27/23 Mag Hydrox/Al Hydrox/Simeth 10 ml PO Q6H PRN #250 ml 07/27/23 [Maalox] Allergies Allergy/AdvReac Type Severity Reaction Status Date / Time No Known Allergies Allergy Verified 07/27/23 12:07 Review of Systems ROS Statement: Those systems with pertinent positive or pertinent negative responses have been documented in the HPI. ROS Other: All systems not noted in ROS Statement are negative. Past Medical History Past Medical History: GERD/Reflux Additional Past Medical History / Comment(s): Carpal Tunnel bilateral, Esophageal Ulcer History of Any Multi-Drug Resistant Organisms: None Reported Past Surgical History: No Surgical Hx Reported Past Psychological History: Anxiety, Bipolar, Depression Smoking Status: Former smoker Past Alcohol Use History: Occasional Past Drug Use History: Marijuana General Exam Limitations: no limitations General appearance: alert, in no apparent distress Head exam: Present: atraumatic, normocephalic, normal inspection Respiratory exam: Present: normal lung sounds bilaterally. Absent: respiratory distress, wheezes, rales, rhonchi, stridor Cardiovascular Exam: Present: regular rate, normal rhythm, normal heart sounds. Absent: systolic murmur, diastolic murmur, rubs, gallop, clicks GI/Abdominal exam: Present: soft, tenderness (LUQ), normal bowel sounds. Absent: distended Neurological exam: Present: alert, oriented X3, CN II-XII intact Psychiatric exam: Present: normal affect, normal mood Skin exam: Present: warm, dry, intact, normal color. Absent: rash Course Vital Signs 07/27/23 07/27/23 12:03 14:16 Temperature 97.4 F L Pulse Rate 114 H 84 Respiratory 20 18 Rate Blood Pressure 122/78 119/72 O2 Sat by Pulse 100 97 Oximetry Medical Decision Making - Medical Decision Making This is a 32-year-old male who presents to the emergency department for abdominal pain. Was pt. sent in by a medical professional or institution? @ -No Did you speak to anyone other than the patient for history? @ -No Did you review nursing and triage notes? @ -Yes, and I agree, it is accurate with regards to the patient's symptoms. Were old charts reviewed? @ -No Differential Diagnosis? @ -Differential Abdominal Pain Men: Appendicitis, cholecystitis, diverticulosis, ischemic bowel, pancreatitis, hepatitis, UTI, gastroenteritis, AAA, incarcerated hernia, bowel obstruction, constipation, inflammatory bowel, hepatitis, peptic ulcer disease, splenic infarction, perforated viscus, testicular torsion, this is not meant to be an all-inclusive list EKG interpreted by me (3pts min.)? @ -EKG interpreted by me demonstrating the following: Sinus rhythm. Ventricular rate 72 beats per minute, NV interval 119 ms, QRS duration 89 ms, QTC 368 ms. X-rays interpreted by me (1pt min.)? @ -Chest x-ray obtained, my interpretation identifies no localized consolidations or infiltrates. CT interpreted by me (1pt min.)? @ -Not obtained U/S interpreted by me (1pt. min.)? @ -Not obtained What testing was considered but not performed? (CT, X-rays, U/S, labs)? Why? @ -None What meds were considered but not given? Why? @ -None Did you discuss the management of the patient with other professionals? @ -No Did you reconcile home meds? @ -No Was smoking cessation discussed for >3mins.? @ -No Was critical care preformed (if so, how long)? @ -No Were there social determinants of health that impacted care today? How? (Homelessness, low income, unemployed, alcoholism, drug addiction, transportation, low edu. Level, literacy, decrease access to med. care, retirement, rehab)? @ -No Was there de-escalation of care discussed even if they declined? (Discuss DNR or withdrawal of care, Hospice)? @ -No What co-morbidities impacted this encounter? (DM, HTN, Smoking, COPD, CAD, Cancer, CVA, Hep., AIDS, mental health diagnosis, sleep apnea, morbid obesity)? @ -GERD Was patient admitted / discharged? @ -Discharged. Lab work obtained and found to be nonactionable. Chest x-ray reveals no acute process. Patient was given Pepcid and a GI cocktail, and essentially had resolution of symptoms. Discussed that it is possible that this is related to GERD or a gas buildup as he had thought. Prescription for Maalox, Levsin, and famotidine provided with dosing instructions reviewed. He was also given information for follow-up with GI, and I advised he contact them for a follow-up appointment. Undiagnosed new problem with uncertain prognosis? @ -None Drug Therapy requiring intensive monitoring for toxicity (Heparin, Nitro, Insulin, Cardizem)? @ -None Were any procedures done? @ -None Diagnosis/symptom? @ -Abdominal pain Acute, or Chronic, or Acute on Chronic? @ -Acute Uncomplicated (without systemic symptoms) or Complicated (systemic symptoms)? @ -Uncomplicated Side effects of treatment? @ -None Exacerbation, Progression, or Severe Exacerbation] @ -Not applicable Poses a threat to life or bodily function? @ -No Diagnosis/symptom? @ -GERD Acute, or Chronic, or Acute on Chronic? @ -Chronic Uncomplicated (without systemic symptoms) or Complicated (systemic symptoms)? @ -Uncomplicated Side effects of treatment? @ -None Exacerbation, Progression, or Severe Exacerbation] @ -Exacerbation Poses a threat to life or bodily function? @ -No Return precautions reviewed in depth, the patient is instructed to return to the emergency department with any new, worsening, or concerning symptoms. Patient verbalized understanding. This case was discussed in detail with the attending ED physician, Dr. Elena. Presentation, findings, and treatment plan discussed in detail as well. - Lab Data Result diagrams: 07/27/23 12:39 07/27/23 12:39 Lab Results 07/27/23 07/27/23 07/27/23 Range/Units 12:39 12:39 12:39 WBC 4.4 (3.8-10.6) k/uL RBC 4.82 (4.30-5.90) m/uL Hgb 15.8 (13.0-17.5) gm/dL Hct 44.7 (39.0-53.0) % MCV 92.7 (80.0-100.0) fL MCH 32.7 (25.0-35.0) pg MCHC 35.3 (31.0-37.0) g/dL RDW 12.2 (11.5-15.5) % Plt Count 167 (150-450) k/uL MPV 8.2 Neutrophils % 68 % Lymphocytes % 23 % Monocytes % 6 % Eosinophils % 2 % Basophils % 0 % Neutrophils # 3.0 (1.3-7.7) k/uL Lymphocytes # 1.0 (1.0-4.8) k/uL Monocytes # 0.3 (0-1.0) k/uL Eosinophils # 0.1 (0-0.7) k/uL Basophils # 0.0 (0-0.2) k/uL PT 11.8 (9.0-12.0) sec INR 1.1 (<1.2) APTT 23.3 (22.0-30.0) sec D-Dimer 0.45 (<0.60) mg/L FEU Sodium 138 (137-145) mmol/L Potassium 4.5 (3.5-5.1) mmol/L Chloride 104 (98-107) mmol/L Carbon Dioxide 25 (22-30) mmol/L Anion Gap 9 mmol/L BUN 12 (9-20) mg/dL Creatinine 0.76 (0.66-1.25) mg/dL Est GFR (CKD-EPI)AfAm >90 (>60 ml/min/1.73 sqM) Est GFR (CKD-EPI)NonAf >90 (>60 ml/min/1.73 sqM) Glucose 94 (74-99) mg/dL Calcium 9.6 (8.4-10.2) mg/dL Magnesium 1.8 (1.6-2.3) mg/dL Total Bilirubin 1.3 (0.2-1.3) mg/dL AST 29 (17-59) U/L ALT 26 (4-49) U/L Alkaline Phosphatase 64 (38-126) U/L Troponin I (0.000-0.034) ng/mL C-Reactive Protein <0.5 (<1.0) mg/dL Total Protein 7.5 (6.3-8.2) g/dL Albumin 4.6 (3.5-5.0) g/dL Amylase 67 (30-110) U/L Lipase 81 (23-300) U/L 07/27/23 Range/Units 12:39 WBC (3.8-10.6) k/uL RBC (4.30-5.90) m/uL Hgb (13.0-17.5) gm/dL Hct (39.0-53.0) % MCV (80.0-100.0) fL MCH (25.0-35.0) pg MCHC (31.0-37.0) g/dL RDW (11.5-15.5) % Plt Count (150-450) k/uL MPV Neutrophils % % Lymphocytes % % Monocytes % % Eosinophils % % Basophils % % Neutrophils # (1.3-7.7) k/uL Lymphocytes # (1.0-4.8) k/uL Monocytes # (0-1.0) k/uL Eosinophils # (0-0.7) k/uL Basophils # (0-0.2) k/uL PT (9.0-12.0) sec INR (<1.2) APTT (22.0-30.0) sec D-Dimer (<0.60) mg/L FEU Sodium (137-145) mmol/L Potassium (3.5-5.1) mmol/L Chloride (98-107) mmol/L Carbon Dioxide (22-30) mmol/L Anion Gap mmol/L BUN (9-20) mg/dL Creatinine (0.66-1.25) mg/dL Est GFR (CKD-EPI)AfAm (>60 ml/min/1.73 sqM) Est GFR (CKD-EPI)NonAf (>60 ml/min/1.73 sqM) Glucose (74-99) mg/dL Calcium (8.4-10.2) mg/dL Magnesium (1.6-2.3) mg/dL Total Bilirubin (0.2-1.3) mg/dL AST (17-59) U/L ALT (4-49) U/L Alkaline Phosphatase (38-126) U/L Troponin I <0.012 (0.000-0.034) ng/mL C-Reactive Protein (<1.0) mg/dL Total Protein (6.3-8.2) g/dL Albumin (3.5-5.0) g/dL Amylase (30-110) U/L Lipase (23-300) U/L - Radiology Data Radiology results: report reviewed, image reviewed Disposition Clinical Impression: GERD (gastroesophageal reflux disease), Abdominal pain Disposition: HOME SELF-CARE Instructions (If sedation given, give patient instructions): GERD (Gastroesophageal Reflux Disease) (ED), Abdominal Pain (ED) Additional Instructions: Return to the emergency department with any new, worsening, or concerning symptoms. Take the Pepcid daily for 2 weeks. You can take the Mylanta up to 4 times daily and the Levsin up to every 4 hours as needed for your symptoms. Contact the gospel worker as listed below for a follow-up appointment and further evaluation of your ongoing symptoms. Follow up with your primary care provider in 1-2 days. Prescriptions: Famotidine 20 mg PO DAILY 14 Days #14 tablet Hyoscyamine Sulfate [Levsin] 0.125 mg PO Q4H PRN #30 tab PRN Reason: Gi Upset Mag Hydrox/Al Hydrox/Simeth [Maalox] 10 ml PO Q6H PRN #250 ml PRN Reason: Gi Upset Is patient prescribed a controlled substance at d/c from ED?: No Referrals: [facility] [Primary Care Provider] - 1-2 days Maria Isabel Almaraz MD [STAFF PHYSICIAN] - 1-2 days
--- NOTE | 2023-07-27 13:03 | XR ---
EXAMINATION TYPE: XR chest 2V DATE OF EXAM: 07/27/2023 12:59 PM COMPARISON: Chest radiographs from 09/28/2021. TECHNIQUE: XR chest 2V Frontal and lateral views of the chest. CLINICAL INDICATION:Male, 32 years old with history of Chest Pain; FINDINGS: Lungs/Pleura: There is no evidence of pleural effusion, focal consolidation, or pneumothorax. Pulmonary vascularity: Unremarkable. Heart/mediastinum: Cardiomediastinal silhouette is unremarkable. Musculoskeletal: No acute osseous pathology. IMPRESSION: No acute cardiopulmonary disease/process.
[2023-07-27 13:06] LABS: Basophils % (A) 0 %; Eosinophils # (A) 0.1 k/uL (0-0.7); Eosinophils % (A) 2 %; HCT 44.7 % (39.0-53.0); HGB 15.8 gm/dL (13.0-17.5); Lymphocytes % (A) 23 %; MCH 32.7 pg (25.0-35.0); MCHC 35.3 g/dL (31.0-37.0); MCV 92.7 fL (80.0-100.0); Mean Platelet Volume 8.2; Monocytes # (A) 0.3 k/uL (0-1.0); Monocytes % (A) 6 %; Neutrophils % (A) 68 %; Platelet Count 167 k/uL (150-450); RBC 4.82 m/uL (4.30-5.90); RDW 12.2 % (11.5-15.5); WBC 4.4 k/uL (3.8-10.6)
[2023-07-27 13:11] LABS: INR 1.1 (<1.2); Partial Thromboplastin Time 23.3 sec (22.0-30.0); Prothrombin Time 11.8 sec (9.0-12.0)
[2023-07-27 13:12] LABS: ALT 26 U/L (4-49); AST 29 U/L (17-59); African American GFR (CKD) >90 (>60 ml/min/1.73 sqM); Albumin 4.6 g/dL (3.5-5.0); Alkaline Phosphatase 64 U/L (38-126); Amylase 67 U/L (30-110); Anion Gap 9 mmol/L; Blood Urea Nitrogen 12 mg/dL (9-20); C Reactive Protein <0.5 mg/dL (<1.0); Calcium 9.6 mg/dL (8.4-10.2); Carbon Dioxide 25 mmol/L (22-30); Chloride 104 mmol/L (98-107); Glucose 94 mg/dL (74-99); Lipase 81 U/L (23-300); Magnesium 1.8 mg/dL (1.6-2.3); Non-African American GFR(CKD) >90 (>60 ml/min/1.73 sqM); Potassium 4.5 mmol/L (3.5-5.1); Sodium 138 mmol/L (137-145); Total Bilirubin 1.3 mg/dL (0.2-1.3); Total Protein 7.5 g/dL (6.3-8.2)
[2023-07-27 14:17] VITALS: BP 119/72; PULSE 84; RESP 18
== END 2023-07-27 14:18 | disposition home or self-care (01) ==
LOC: EC 11:54
DX: K21.9 Gastro-esophageal reflux disease without esophagitis (principal); F41.9 Anxiety disorder, unspecified; F31.9 Bipolar disorder, unspecified; F12.90 Cannabis use, unspecified, uncomplicated; Z87.891 Personal history of nicotine dependence; Z79.899 Other long term (current) drug therapy
CPT/HCPCS: 36415; 93005; 85379; 80053; 82150; 83690; 83735; 84484; 85025; 85610; 85730; 86140; 71046; 99284; 96374; J3490

== ENCOUNTER 2023-07-27 21:09 | Emergency (ER) | payer OTHER ==
[2023-07-27 21:15] VITALS: RESP 18; TEMP 98.2
[2023-07-28] MEDS ORDERED: traZODone HCL 100 MG TAB PO STA (01:46)
--- NOTE | 2023-07-28 01:46 | ED ---
Anxiety HPI - General Chief Complaint: Anxiety Stated Complaint: Mental health Time Seen by Provider: 07/27/23 22:47 Source: patient Mode of arrival: ambulatory - History of Present Illness Initial Comments: This patient is 32-year-old man who is here to have evaluation for anxiety and inability to sleep. The patient states that he had some alcoholic drinks tonight which gave him further anxiety as she had previously quit drinking. The patient stated that he wanted to have further psychiatric evaluation. Currently denying suicidal/homicidal ideation. No hallucinations. MD Complaint: anxiety -: hour(s) Symptoms: sense of impending doom Place: home Previous History of Same: Yes Severity: moderate Quality: similar to prior episodes Provoking factors: emotional stress Improves With: nothing Worsens With: other - Related Data Home Medications: Previous Rx's Medication Instructions Recorded FLUoxetine HCL [PROzac] 60 mg PO DAILY 30 Days #90 cap 05/25/23 clonazePAM [KlonoPIN] 0.5 mg PO BID PRN 15 Days #30 tab 05/25/23 traZODone HCL [Desyrel] 100 mg PO HS PRN 30 Days #30 tab 05/25/23 Famotidine 20 mg PO DAILY 14 Days #14 tablet 07/27/23 Hyoscyamine Sulfate [Levsin] 0.125 mg PO Q4H PRN #30 tab 07/27/23 Mag Hydrox/Al Hydrox/Simeth 10 ml PO Q6H PRN #250 ml 07/27/23 [Maalox] Allergies/Adverse Reactions: Allergies Allergy/AdvReac Type Severity Reaction Status Date / Time No Known Allergies Allergy Verified 07/27/23 12:07 Review of Systems ROS Statement: Those systems with pertinent positive or pertinent negative responses have been documented in the HPI. ROS Other: All systems not noted in ROS Statement are negative. Constitutional: Denies: fever, chills Respiratory: Denies: cough, dyspnea Cardiovascular: Denies: chest pain, palpitations Gastrointestinal: Denies: abdominal pain, nausea, vomiting Genitourinary: Denies: dysuria, hematuria Musculoskeletal: Denies: back pain Skin: Denies: rash Neurological: Denies: headache Psychiatric: Reports: anxiety. Denies: auditory hallucinations, visual hallucinations, homicidal thoughts, suicidal thoughts Past Medical History Past Medical History: GERD/Reflux Additional Past Medical History / Comment(s): Carpal Tunnel bilateral, Esophageal Ulcer History of Any Multi-Drug Resistant Organisms: None Reported Past Surgical History: No Surgical Hx Reported Past Psychological History: Anxiety, Bipolar, Depression Smoking Status: Former smoker Past Alcohol Use History: Occasional Past Drug Use History: Marijuana General Exam Limitations: no limitations General appearance: alert, in no apparent distress, anxious Head exam: Present: atraumatic, normocephalic Eye exam: Present: normal appearance. Absent: scleral icterus, conjunctival injection Neck exam: Present: normal inspection Respiratory exam: Present: normal lung sounds bilaterally. Absent: respiratory distress, wheezes, rales, rhonchi, stridor Cardiovascular Exam: Present: regular rate, normal rhythm, normal heart sounds. Absent: systolic murmur, diastolic murmur, rubs, gallop GI/Abdominal exam: Present: soft. Absent: distended, tenderness, guarding, rebound Extremities exam: Present: normal inspection, normal capillary refill. Absent: pedal edema, calf tenderness Neurological exam: Present: alert Psychiatric exam: Present: anxious. Absent: agitated, flat affect, manic, homicidal ideation, suicidal ideation Skin exam: Present: warm, dry, intact, normal color. Absent: rash Course Vital Signs 07/27/23 07/28/23 21:12 01:59 Temperature 98.2 F Pulse Rate 115 H 56 L Respiratory 18 18 Rate Blood Pressure 123/73 108/67 O2 Sat by Pulse 95 97 Oximetry Medical Decision Making - Medical Decision Making Was pt. sent in by a medical professional or institution (DAMIEN Emery, MAINTENANCE PLANNER, urgent care, hospital, or skilled nursing...) When possible be specific @ -[No] Did you speak to anyone other than the patient for history (EMS, parent, family, police, friend...)? What history was obtained from this source @ -[No] Did you review nursing and triage notes (agree or disagree)? Why? @ -[I reviewed and agree with nursing and triage notes] Were old charts reviewed (outside hosp., previous admission, EMS record, old EKG, old radiological studies, urgent care reports/EKG's, skilled nursing records)? Report findings @ -[No old charts were reviewed] Differential Diagnosis (chest pain, altered mental status, abdominal pain women, abdominal pain men, vaginal bleeding, weakness, fever, dyspnea, syncope, headache, dizziness, GI bleed, back pain, seizure, CVA, palpatations, mental health, musculoskeletal)? @ -[Differential Mental Health Depression, anxiety, bipolar, psychosis, schizophrenia, borderline personality, situational depression, adjustment disorder, behavioral disorder, brain tumor, malingering, substance abuse, encephalopathy, medication reaction, dementia, hypothyroidism, degenerative neurologic disorder, lupus.... This is not meant to be all-inclusive list EKG interpreted by me (3pts min.). @ -[ X-rays interpreted by me (1pt min.). @ -[None done] CT interpreted by me (1pt min.). @ -[None done] U/S interpreted by me (1pt. min.). @ -[None done] What testing was considered but not performed or refused? (CT, X-rays, U/S, labs)? Why? @ -[None] What meds were considered but not given or refused? Why? @ -[None] Did you discuss the management of the patient with other professionals (professionals i.e. , PA, MAINTENANCE PLANNER, lab, RT, psych nurse, social media community manager, domestic violence counselor, teacher, deputy juvenile officer, casework specialist)? Give summary @ -[Case discussed with EPS nurse Was smoking cessation discussed for >3mins.? @ -[No] Was critical care preformed (if so, how long)? @ -[No] Were there social determinants of health that impacted care today? How? (Homelessness, low income, unemployed, alcoholism, drug addiction, transportation, low edu. Level, literacy, decrease access to med. care, fci, rehab)? @ -[No] Was there de-escalation of care discussed even if they declined (Discuss DNR or withdrawal of care, Hospice)? DNR status @ -[No] What co-morbidities impacted this encounter? (DM, HTN, Smoking, COPD, CAD, Cancer, CVA, ARF, Chemo, Hep., AIDS, mental health diagnosis, sleep apnea, morbid obesity)? @ -[None] Was patient admitted / discharged? Hospital course, mention meds given and ro nilton, prescriptions, significant lab abnormalities, going to OR and other pertinent info. @ -[Patient is a 32-year-old man here to have further evaluation for anxiety. He is seen by EPS and he does meet criteria to continue as outpatient. The patient is given trazodone to aid in sleep. He does have safety plan. Patient agrees to return if symptoms worsen or if any new symptoms develop Undiagnosed new problem with uncertain prognosis? @ -[No] Drug Therapy requiring intensive monitoring for toxicity (Heparin, Nitro, I nsulin, Cardizem)? @ -[No] Were any procedures done? @ -[No] Diagnosis/symptom? @ -Acute on chronic anxiety Acute, or Chronic, or Acute on Chronic? @ -[default] Uncomplicated (without systemic symptoms) or Complicated (systemic symptoms)? @ -[Uncomplicated Side effects of treatment? @ -[No] Exacerbation, Progression, or Severe Exacerbation? @ -[No] Poses a threat to life or bodily function? How? (Chest pain, [place], [place], pneumonia, PE, COPD, DKA, ARF, appy, cholecystitis, CVA, Diverticulitis, Homicidal, Suicidal, threat to staff... and all critical care pts) @ -[No] Disposition Clinical Impression: Acute anxiety Disposition: HOME SELF-CARE Condition: Good Instructions (If sedation given, give patient instructions): Generalized Anxiety Disorder (ED) Is patient prescribed a controlled substance at d/c from ED?: No Referrals: [facility] [Primary Care Provider] - 1-2 days
[2023-07-28 02:00] VITALS: BP 108/67; PULSE 56
== END 2023-07-28 02:25 | disposition home or self-care (01) ==
LOC: EC 21:09
DX: F41.9 Anxiety disorder, unspecified (principal); F12.90 Cannabis use, unspecified, uncomplicated; Z87.891 Personal history of nicotine dependence
CPT/HCPCS: 82075; 99283

== ENCOUNTER 2023-12-30 10:02 | Emergency (ER) | payer OTHER ==
--- NOTE | 2023-12-30 10:27 | ED ---
Chest Pain HPI - General Stated Complaint: abd pain Time Seen by Provider: 12/30/23 10:26 Source: patient, RN notes reviewed Mode of arrival: ambulatory Limitations: no limitations - History of Present Illness Initial Comments: Patient is a 33-year-old male presented to ER with chief complaint of chest pain. Patient also is endorsing left arm numbness. Patient states been going on for a week and symptoms increased yesterday. Denies any known cardiac history. Patient also is reporting that he has some shortness of breath. Patient does state he has a history of anxiety. Patient has not been able to get into see a PCP due to insurance issues. Patient reports that whenever he eats he feels like there is a buldge. He reports he has tried OTC medications without relief. - Related Data Previous Rx's Medication Instructions Recorded FLUoxetine HCL [PROzac] 60 mg PO DAILY 30 Days #90 cap 05/25/23 clonazePAM [KlonoPIN] 0.5 mg PO BID PRN 15 Days #30 tab 05/25/23 traZODone HCL [Desyrel] 100 mg PO HS PRN 30 Days #30 tab 05/25/23 Famotidine 20 mg PO DAILY 14 Days #14 tablet 07/27/23 Hyoscyamine Sulfate [Levsin] 0.125 mg PO Q4H PRN #30 tab 07/27/23 Mag Hydrox/Al Hydrox/Simeth 10 ml PO Q6H PRN #250 ml 07/27/23 [Maalox] Omeprazole [PriLOSEC] 20 mg PO AC-BRKFST #14 cap 12/30/23 Allergies Allergy/AdvReac Type Severity Reaction Status Date / Time No Known Allergies Allergy Verified 07/27/23 12:07 Review of Systems ROS Statement: Those systems with pertinent positive or pertinent negative responses have been documented in the HPI. ROS Other: All systems not noted in ROS Statement are negative. EKG Findings - EKG Comments: EKG Findings:: EKG taken at 10: 29 shows sinus arrhythmia with inverted T waves in lead III. Ventricular rate 92, ID interval 112, QRS duration 87, QT/QTc 328/378. Past Medical History Past Medical History: GERD/Reflux Additional Past Medical History / Comment(s): Carpal Tunnel bilateral, Esophageal Ulcer History of Any Multi-Drug Resistant Organisms: None Reported Past Surgical History: No Surgical Hx Reported Past Psychological History: Anxiety, Bipolar, Depression Smoking Status: Former smoker Past Alcohol Use History: Occasional Past Drug Use History: Marijuana General Exam - General Exam Comments Initial Comments: Visual Physical Exam Vital signs reviewed General: Well-appearing, nontoxic, no acute distress. Head: Normocephalic, atraumatic Eyes: PERRLA, EOMI ENT: Airway patent Chest: Nonlabored breathing Skin: No visual rash, normal skin tone Neuro: Alert and oriented 3 Musculoskeletal: No gross abnormalities Limitations: no limitations General appearance: alert, in no apparent distress, anxious Head exam: Present: atraumatic, normocephalic, normal inspection Eye exam: Present: normal appearance, PERRL, EOMI. Absent: scleral icterus, conjunctival injection, periorbital swelling Respiratory exam: Present: normal lung sounds bilaterally. Absent: respiratory distress, wheezes, rales, rhonchi, stridor Cardiovascular Exam: Present: regular rate, normal rhythm, normal heart sounds. Absent: systolic murmur, diastolic murmur, rubs, gallop, clicks GI/Abdominal exam: Present: soft, normal bowel sounds. Absent: distended, tenderness, guarding, rebound, rigid Neurological exam: Present: alert, oriented X3, CN II-XII intact Psychiatric exam: Present: normal affect, normal mood, anxious Skin exam: Present: warm, dry, intact, normal color. Absent: rash Course Vital Signs 12/30/23 10:20 Temperature 98.0 F Pulse Rate 112 H Respiratory 16 Rate O2 Sat by Pulse 99 Oximetry Chest Pain MDM - MDM I performed the quick note portion of the exam. Electronically signed by Carroll Montes PA-C Was pt. sent in by a medical professional or institution (DAMIEN Emery, ENGINE LATHE SET UP OPERATOR, urgent care, hospital, or fci...) When possible be specific @ -No Did you speak to anyone other than the patient for history (EMS, parent, family, police, friend...)? What history was obtained from this source @ -No Did you review nursing and triage notes (agree or disagree)? Why? @ -I reviewed and agree with nursing and triage notes Were old charts reviewed (outside hosp., previous admission, EMS record, old EKG, old radiological studies, urgent care reports/EKG's, fci records)? Report findings @ -No old charts were reviewed Differential Diagnosis (chest pain, altered mental status, abdominal pain women, abdominal pain men, vaginal bleeding, weakness, fever, dyspnea, syncope, headache, dizziness, GI bleed, back pain, seizure, CVA, palpatations, mental health, musculoskeletal)? @ -Differential Chest Pain: Stable Angina, Unstable Angina, STEMI, NSTEMI Aortic Dissection, Pneumothorax, Musculoskeletal, Esophageal Spasm GERD, Cholecystitis, Pancreatitis, Zoster, this is not meant to be an all-inclusive list. EKG interpreted by me (3pts min.). @ -As above X-rays interpreted by me (1pt min.). @ -Chest x-ray interpreted by me shows no acute process. CT interpreted by me (1pt min.). @ -None done U/S interpreted by me (1pt. min.). @ -None done What testing was considered but not performed or refused? (CT, X-rays, U/S, labs)? Why? @ -None What meds were considered but not given or refused? Why? @ -None Did you discuss the management of the patient with other professionals (professionals i.e. , PA, ENGINE LATHE SET UP OPERATOR, lab, RT, psych nurse, geriatric social work professor, banquet stewardess, teacher, legal officer, pillowcase cleaner)? Give summary @ -No Was smoking cessation discussed for >3mins.? @ -No Was critical care preformed (if so, how long)? @ -No Were there social determinants of health that impacted care today? How? (Homelessness, low income, unemployed, alcoholism, drug addiction, transportation, low edu. Level, literacy, decrease access to med. care, residential, rehab)? @ -Decreased access to medical care Was there de-escalation of care discussed even if they declined (Discuss DNR or withdrawal of care, Hospice)? DNR status @ -No What co-morbidities impacted this encounter? (DM, HTN, Smoking, COPD, CAD, Cancer, CVA, ARF, Chemo, Hep., AIDS, mental health diagnosis, sleep apnea, morbid obesity)? @ -Anxiety Was patient admitted / discharged? Hospital course, mention meds given and route, prescriptions, significant lab abnormalities, going to OR and other pertinent info. @ -Discharge. Patient is a 33-year-old male presented to ER with chief complaint of epigastric pain. Vitals stable. History and physical exam were completed. Patient in no sign of acute distress. Labs obtained in the ER unremarkable. Troponin negative. COVID, RSV, influenza negative. EKG without signs of ischemia or infarct. Chest x-ray interpreted by me shows no acute process. Imaging findings were discussed with patient. Patient prescribed omeprazole. Advised him to follow-up with PCP. Patient reports that he has an appointment in the next couple of weeks. Return parameters were discussed. Patient be discharged stable condition with follow-up to PCP. Patient expressed understanding and agreement with care plan. Undiagnosed new problem with uncertain prognosis? @ -No Drug Therapy requiring intensive monitoring for toxicity (Heparin, Nitro, Insulin, Cardizem)? @ -No Were any procedures done? @ -No Diagnosis/symptom? @ -Atypical chest pain/ anxiety Acute, or Chronic, or Acute on Chronic? @ -Acute Uncomplicated (without systemic symptoms) or Complicated (systemic symptoms)? @ -Uncomplicated Side effects of treatment? @ -No Exacerbation, Progression, or Severe Exacerbation? @ -No Poses a threat to life or bodily function? How? (Chest pain, [place], [place], pneumonia, PE, COPD, DKA, ARF, appy, cholecystitis, CVA, Diverticulitis, Homicidal, Suicidal, threat to staff... and all critical care pts) @ -No Disposition Clinical Impression: Anxiety, Atypical chest pain Disposition: HOME SELF-CARE Condition: Stable Instructions (If sedation given, give patient instructions): Chest Pain (ED) Additional Instructions: Please follow-up with PCP as scheduled. Return to ER for any new or worsening symptoms. Prescriptions: Omeprazole [PriLOSEC] 20 mg PO -BRKFST #14 cap Is patient prescribed a controlled substance at d/c from ED?: No Referrals: None,Stated [Primary Care Provider] - 1-2 days Time of Disposition: 13:28
[2023-12-30 10:30] VITALS: PULSE 112; RESP 16; TEMP 98
[2023-12-30 11:07] LABS: Basophils % (A) 0 %; Eosinophils # (A) 0.1 k/uL (0-0.7); Eosinophils % (A) 1 %; HCT 46.6 % (39.0-53.0); HGB 16.4 gm/dL (13.0-17.5); Lymphocytes # (A) 1.1 k/uL (1.0-4.8); Lymphocytes % (A) 25 %; MCH 32.5 pg (25.0-35.0); MCHC 35.1 g/dL (31.0-37.0); MCV 92.4 fL (80.0-100.0); Monocytes # (A) 0.2 k/uL (0-1.0); Monocytes % (A) 5 %; Neutrophils # (A) 2.9 k/uL (1.3-7.7); Neutrophils % (A) 66 %; Platelet Count 194 k/uL (150-450); RBC 5.04 m/uL (4.30-5.90); RDW 12.7 % (11.5-15.5); WBC 4.4 k/uL (3.8-10.6)
--- NOTE | 2023-12-30 11:08 | XR ---
EXAMINATION TYPE: XR chest 2V DATE OF EXAM: 12/30/2023 10:47 AM COMPARISON: Chest radiographs from 07/27/2023 TECHNIQUE: XR chest 2V Frontal and lateral views of the chest. CLINICAL INDICATION:Male, 33 years old with history of Chest Pain; FINDINGS: Lungs/Pleura: There is no evidence of pleural effusion, focal consolidation, or pneumothorax. Pulmonary vascularity: Unremarkable. Heart/mediastinum: Cardiomediastinal silhouette is unremarkable. Musculoskeletal: No acute osseous pathology. IMPRESSION: No acute cardiopulmonary disease/process.
[2023-12-30 11:20] LABS: INR 1.1 (<1.2); Prothrombin Time 12.1 sec (10.0-12.5)
[2023-12-30 11:36] LABS: ALT 30 U/L (4-49); AST 34 U/L (17-59); African American GFR (CKD) >90 (>60 ml/min/1.73 sqM); Albumin 4.3 g/dL (3.5-5.0); Alkaline Phosphatase 56 U/L (38-126); Anion Gap 8 mmol/L; Blood Urea Nitrogen 13 mg/dL (9-20); Calcium 9.7 mg/dL (8.4-10.2); Carbon Dioxide 24 mmol/L (22-30); Chloride 106 mmol/L (98-107); Glucose 100 mg/dL (74-99); Magnesium 1.8 mg/dL (1.6-2.3); Non-African American GFR(CKD) >90 (>60 ml/min/1.73 sqM); Potassium 4.1 mmol/L (3.5-5.1); Sodium 138 mmol/L (137-145); Total Bilirubin 1.2 mg/dL (0.2-1.3); Total Protein 6.7 g/dL (6.3-8.2)
== END 2023-12-30 13:47 | disposition home or self-care (01) ==
LOC: EC 10:02
DX: F41.9 Anxiety disorder, unspecified (principal); R07.89 Other chest pain; F12.90 Cannabis use, unspecified, uncomplicated; Z87.891 Personal history of nicotine dependence; Z20.822 Contact with and (suspected) exposure to COVID-19
CPT/HCPCS: 36415; 71046; 80053; 83735; 84484; 85025; 85379; 85610; 85730; 87636; 93005; 99284

== ENCOUNTER 2024-05-26 00:24 | Emergency (ER) | payer OTHER ==
[2024-05-26] MEDS: ACETAMINOPHEN TAB 325 MG TAB PO STA (00:46)
--- NOTE | 2024-05-26 01:51 | ED ---
General Adult HPI - General Source: patient, police, RN notes reviewed, old records reviewed Mode of arrival: wheelchair Limitations: no limitations <Johnson Li - Last Filed: 05/26/24 01:47> <Morgan Vallejo - Last Filed: 05/26/24 12:30> - General Chief complaint: Psychiatric Symptoms Stated complaint: Petition Time Seen by Provider: 05/26/24 00:26 - History of Present Illness Initial comments: Is a 33-year-old male who presents emergency department for psychiatric evaluation. Patient was petitioned by police. Found intoxicated at home in an altercation with family. Just got out of half-way where he was for the last 10 days. Went home and drank. Got an altercation. Was brought here for psych eval. Patient is cooperative and has no acute complaints at this time. Denies suicidal or homicidal ideations, times complaints. Denies hallucinations. Presents for further evaluation at this time.Petition states that he made some suicidal statements to police officers and asked one of the officers to shoot him (Johnson Li) - Related Data Previous Rx's Medication Instructions Recorded Omeprazole [PriLOSEC] 20 mg PO AC-BRKFST #14 cap 12/30/23 Allergies Allergy/AdvReac Type Severity Reaction Status Date / Time No Known Allergies Allergy Verified 05/26/24 10:16 Review of Systems ROS Other: All systems not noted in ROS Statement are negative. <Johnson Li - Last Filed: 05/26/24 01:47> ROS Other: All systems not noted in ROS Statement are negative. <Morgan Vallejo - Last Filed: 05/26/24 12:30> ROS Statement: Those systems with pertinent positive or pertinent negative responses have been documented in the HPI. Review of Systems: CONST: Denies fever EYES: Denies blurry vision ENT: Denies nasal congestion C/V: Denies Chest pain RESP: Denies shortness of breath GI: Denies abdominal pain : Denies dysuria SKIN: Denies rash. MSK: Denies joint pain. NEURO: Denies headache (Johnson Li) Past Medical History Past Medical History: GERD/Reflux Additional Past Medical History / Comment(s): Carpal Tunnel bilateral, Esophageal Ulcer History of Any Multi-Drug Resistant Organisms: None Reported Past Surgical History: No Surgical Hx Reported Past Psychological History: Anxiety, Bipolar, Depression Smoking Status: Former smoker Past Alcohol Use History: Occasional Past Drug Use History: Marijuana <GuillermoJohnson - Last Filed: 05/26/24 01:47> General Exam Limitations: no limitations <Johnson Li - Last Filed: 05/26/24 01:47> - General Exam Comments Initial Comments: General: Appears in no acute distress. Acutely intoxicated with alcohol. Evidence of alcohol withdrawals. HEAD: Normal with no signs of head trauma. EYES: PERRLA, EOMI, conjunctiva normal, no discharge. ENT: Hearing grossly intact, normal oropharynx. RESPIRATORY: Clear breath sounds bilaterally. No wheezes, rales, or rhonchi. C/V: Regular rate and rhythm. S1 and S2 auscultated, no edema, peripheral pulses 2+ and intact throughout ABD: Abd is soft, nontender, nondistended EXT: no obvious deformity SKIN: No rashes or lesions observed on exposed skin. NEURO: Alert and oriented x 4. (Johnson Li) Course Vital Signs 05/26/24 05/26/24 00:25 11:00 Temperature 98.2 F 98.1 F Pulse Rate 108 H 99 Respiratory 16 18 Rate Blood Pressure 128/94 122/69 O2 Sat by Pulse 97 99 Oximetry Medical Decision Making <Johnson Li - Last Filed: 05/26/24 01:47> <Morgan Vallejo - Last Filed: 05/26/24 12:30> - Medical Decision Making Was pt. sent in by a medical professional or institution (, PA, PILLAR MAN, urgent care, hospital, or prison...) When possible be specific @ -No Did you speak to anyone other than the patient for history (EMS, parent, family, police, friend...)? What history was obtained from this source @ -With police and reviewed petition. Petition states patient asked to please officer to shoot him. Had an altercation with his family after getting intoxic ated. Did you review nursing and triage notes (agree or disagree)? Why? @ -I reviewed and agree with nursing and triage notes Were old charts reviewed (outside hosp., previous admission, EMS record, old EKG, old radiological studies, urgent care reports/EKG's, prison records)? Report findings @ -No old charts were reviewed Differential Diagnosis (chest pain, altered mental status, abdominal pain women, abdominal pain men, vaginal bleeding, weakness, fever, dyspnea, syncope, headache, dizziness, GI bleed, back pain, seizure, CVA, palpatations, mental health, musculoskeletal)? @ -Differential Mental Health Depression, anxiety, bipolar, psychosis, schizophrenia, borderline personality, situational depression, adjustment disorder, behavioral disorder, brain tumor, malingering, substance abuse, encephalopathy, medication reaction, dementia, hypothyroidism, degenerative neurologic disorder, lupus.... This is not meant to be all-inclusive list EKG interpreted by me (3pts min.). @ -None done X-rays interpreted by me (1pt min.). @ -None done CT interpreted by me (1pt min.). @ -None done U/S interpreted by me (1pt. min.). @ -None done What testing was considered but not performed or refused? (CT, X-rays, U/S, labs)? Why? @ -None What meds were considered but not given or refused? Why? @ -None Did you discuss the management of the patient with other professionals (femi jaquez i.e. , PA, PILLAR MAN, lab, RT, psych nurse, family welfare social work professor, grapple yarder operator, teacher, affirmative action officer, protective services case worker)? Give summary @ -EPS notified of the consult Was smoking cessation discussed for >3mins.? @ -No Was critical care preformed (if so, how long)? @ -No Were there social determinants of health that impacted care today? How? (Homelessness, low income, unemployed, alcoholism, drug addiction, transportation, low edu. Level, literacy, decrease access to med. care, [facility], rehab)? @ -No Was there de-escalation of care discussed even if they declined (Discuss DNR or withdrawal of care, Hospice)? DNR status @ -No What co-morbidities impacted this encounter? (DM, HTN, Smoking, COPD, CAD, Cancer, CVA, ARF, Chemo, Hep., AIDS, mental health diagnosis, sleep apnea, morbid obesity)? @ -None Was patient admitted / discharged? Hospital course, mention meds given and route, prescriptions, significant lab abnormalities, going to OR and other pertinent info. @ -Patient presents for mental health evaluation. Sitter ordered. Suicide precaution ordered. Petition states that he has special police officer to shoot him with his gun and states he has nowhere to live and that he should just . Is acutely intoxicated with alcohol. Vital signs within acceptable limits. BAT is 0.186. UDS is pending. At this time, patient is medically cleared for evaluation by psychiatry upon sobriety. Disposition is pending psychiatric evaluation. EPS notified of the consult. Undiagnosed new problem with uncertain prognosis? @ -No Drug Therapy requiring intensive monitoring for toxicity (Heparin, Nitro, Insulin, Cardizem)? @ -No Were any procedures done? @ -No Diagnosis/symptom? @ -Alcohol intoxication, encounter for psychiatric evaluation Acute, or Chronic, or Acute on Chronic? @ -Acute Uncomplicated (without systemic symptoms) or Complicated (systemic symptoms)? @ -Complicated Side effects of treatment? @ -No Exacerbation, Progression, or Severe Exacerbation? @ -No Poses a threat to life or bodily function? How? (Chest pain, USA, [place], pneumonia, PE, COPD, DKA, ARF, appy, cholecystitis, CVA, Diverticulitis, Homicidal, Suicidal, threat to staff... and all critical care pts) @ -Possibly (Johnson Li) Patient care signed out to me by previous shift physician, Dr. Li. Patient care signed out pending EPS evaluation. Briefly, patient petition by [facility] ED for bizarre behavior. Patient was medically cleared by Dr. Li. Patient eval by EPS recommended discharge with outpatient management. (Morgan Vallejo) - Lab Data Lab Results 05/26/24 Range/Units 11:36 Urine Opiates Screen Not Detected (NotDetected) Ur Oxycodone Screen Not Detected (NotDetected) Urine Methadone Screen Not Detected (NotDetected) Ur Barbiturates Screen Not Detected (NotDetected) U Tricyclic Antidepress Not Detected (NotDetected) Ur Phencyclidine Scrn Not Detected (NotDetected) Ur Amphetamines Screen Not Detected (NotDetected) U Methamphetamines Scrn Not Detected (NotDetected) U Benzodiazepines Scrn Not Detected (NotDetected) Urine Cocaine Screen Not Detected (NotDetected) U Marijuana (THC) Screen Detected H (NotDetected) Disposition <Johnson Li - Last Filed: 06/27/24 01:47> Is patient prescribed a controlled substance at d/c from ED?: No Time of Disposition: 12:30 <Morgan Vallejo - Last Filed: 05/26/24 12:30> Clinical Impression: Alcohol intoxication, Encounter for psychiatric assessment Disposition: HOME SELF-CARE Referrals: Otto Villavicencio MD [Primary Care Provider] - 1-2 days
[2024-05-26] MEDS: ONDANSETRON ODT 4 MG TAB PO STA (09:37)
[2024-05-26] MEDS: ONDANSETRON 4 MG/2 ML VIAL IVP STA (10:24)
[2024-05-26] MEDS: METOCLOPRAMIDE 5 MG/ML 2 ML VIAL IVP STA (10:58)
[2024-05-26 11:06] VITALS: BP 122/69; PULSE 99; RESP 18; TEMP 98.1
[2024-05-26] MEDS: SODIUM CHLORIDE 0.9% 1,000 ML IV ONE (11:38)
[2024-05-26 12:08] LABS: Urn Cannabinoid Scrn Detected (NotDetected)
[2024-05-26 12:09] LABS: Amphetamine Screen,Urine Not Detected (NotDetected); Barbiturate Screen,Urine Not Detected (NotDetected); Benzodiazepines Screen,Urine Not Detected (NotDetected); Cocaine Screen,Urine Not Detected (NotDetected); Methadone Screen, Urine Not Detected (NotDetected); Opiate Screen,Urine Not Detected (NotDetected); Oxycodone Screen, Urine Not Detected (NotDetected); Phencyclidine Screen,Urine Not Detected (NotDetected); Tricyclic Antidepressant,Urine Not Detected (NotDetected)
== END 2024-05-26 12:41 | disposition home or self-care (01) ==
LOC: EC 00:24
DX: Z04.6 Encounter for general psychiatric examination, requested by authority (principal); F10.129 Alcohol abuse with intoxication, unspecified; Z87.891 Personal history of nicotine dependence
CPT/HCPCS: 82075; 80306; 99285; 96374; 96375; 96361; J2765; J2405